=== PATIENT | male | born 1940 | race Caucasian/White ===

== ENCOUNTER → 2016-11-26 10:47 | Outpatient (CLI) | payer MEDICARE ==
[2016-11-26 12:30] LABS: ERYTHROCYTE SEDIMENTATION RATE 10 mm/hr (0-20)
[2016-11-27 10:18] LABS: ANA REFLEX - DIRECT Negative (Negative)
== END | disposition home or self-care (01) ==
LOC: D.LAB 10:47
PROVIDERS: Psychiatry & Neurology Neurology
DX: R51 Headache (principal)